=== PATIENT | female | born 1990 | race Caucasian/White ===

== ENCOUNTER 2025-04-22 13:59 | Emergency (ER) | payer MEDICAID ==
[~2025-04-22] VITALS: Ht 157.5 cm; Wt 99.5 kg
[2025-04-22 14:04] VITALS: BP 126/80; PULSE 92; TEMP 98; O2SAT 100
--- NOTE | 2025-04-22 14:31 | Physician Documentation ---
HPI ~ General Chief Complaint: Tooth Problem Stated Complaint: ABSCESS TOOTH Time Seen by MD: 15:30 History of Present Illness HPI Comment Presents with a 1-2 days of right-sided mouth pain. She states she thinks she has a tooth abscess. Has a history of dental issues. Denies any nausea vomiting or fevers. Reports increased pain and swelling. Medication Reconciliation Allergies: Coded Allergies: Penicillins (Verified Allergy, Unknown, Hives, 04/22/25) Scheduled Clindamycin HCl (Cleocin HCl), 1 CAP PO Q8H Review of Systems All Other Systems at this time: Reviewed and Negative ROS As stated above in the HPI, otherwise all systems are reviewed and negative. Physical Exam Vital Signs: Temperature: 98.0, Source: Oral, Heart Rate: 92, Respiratory Rate: 16, BP: 126/80, Pulse Oximetry: 100, Weight: 99.500 Oxygen Flow Rate: 0 Physical Exam General: Alert, no apparent distress. HEENT: PERRL, EOMI, no injection, moist mucous membranes. Erythema notable caries throughout oral cavity erythema in the right lower molar region swelling. No drainage Neck: Full range of motion. Respiratory: Lungs clear, no respiratory distress. Neurologic: Oriented x4. Psychiatric: Normal mood and affect. Skin: Normal color, warm and dry. No edema, no ecchymosis. Progress Results/Orders Results/Orders Completed Orders - DELANO WOLF NP Clindamycin Capsule (Cleocin Capsule) (04/22/25 15:40) Ketorolac Trometh 30mg/Ml Vial (Toradol (04/22/25 15:40) Medications Received in ER Medications (Trade) Dose Ordered Sig/Carly Route PRN Reason Start Time Stop Time Status Last Admin Dose Admin (Cleocin capsule) 300 mg ONCE ONCE PO 04/22/25 15:40 04/22/25 15:41 DC 04/22/25 15:59 300 MG (Toradol inj. 30mg/ml) 30 mg ONCE ONCE IM 04/22/25 15:40 04/22/25 15:41 DC 04/22/25 16:00 30 MG Vital Signs 04/22/25 04/22/25 14:04 16:00 Temp 98.0 Pulse 92 Resp 16 15 B/P (MAP) 126/80 Pulse Ox 100 O2 Flow Rate 0 Medical Decision Making Findings Treating patient for a tooth infection and giving her some pain management Differential Dx:Considerations: Include: Alveolar fracture, Alveolar osteitis, ANUG, Facial Cellulitis, Periapical abscess, Peridontal abscess, Post-extraction bleeding, Pulpitis, Tooth avulsion, Tooth eruption, Tooth Fracture, Trigeminal neuralgia, Tooth subluxation, Other Departure Disposition: 01 HOME / SELF CARE / HOMELESS Impression: Primary Impression: Toothache Additional Impression: Dental caries Condition: Stable Discharge Instructions: Dental Caries, Adult Referrals: NO PRIMARY CARE PROVIDER (PCP) Prescriptions Clindamycin HCl (Cleocin HCl) 300 Mg Capsule 1 CAP PO Q8H for 10 Days, #30 CAP Prov: DELANO WOLF NP 04/22/25 Education Educated: Patient Educated regarding: diagnosis Signature Scribe Signature: f Attestation: The note accurately reflects work and decisions made by me.Delano Mckinley NP 04/22/25 19:00 DELANO WOLF NP April 22, 2025 14:31
[2025-04-22] MEDS ORDERED: CLIN300C3 PO (15:35)
[2025-04-22] MEDS: clindamycin 150mg capsule PO ONE (15:59)
[2025-04-22 16:00] VITALS: RESP 15
[2025-04-22] MEDS: ketorolac trometh 30MG/ML vial 30 MG/ML VIAL IM ONE (16:00)
== END 2025-04-22 16:07 | disposition home or self-care (01) ==
LOC: ER 13:59
DX: K02.9 Dental caries, unspecified (principal); Z88.0 Allergy status to penicillin
CPT/HCPCS: 96372; 99283; J1885